=== PATIENT | female | born 1935 | race Caucasian/White ===

== ENCOUNTER → 2022-05-29 08:15 | Outpatient (BNVA) | payer MEDICARE, SELFPAY | PROVIDERS: PCP Internal Medicine Medical Oncology; Visit Provider Surgery | DX: C50.912 Malignant neoplasm of unspecified site of left female breast (principal) | CPT/HCPCS: 99202 ==

== ENCOUNTER 2022-06-09 06:45 | Day surgery (SDC) | payer MEDICARE, SELFPAY ==
[2022-06-03 11:59] VITALS: BP 123/61; PULSE 68; RESP 20; O2SAT 95; BMI 23.0
--- NOTE | 2022-06-03 12:10 | P.CONAN_ITS ---
Documented by User: Fouzia Santos NP 06/06/22 10:49 HPI - Anesthesia Eval Consult details Narrative: 86yo F for Left Breast Lumpectomy/Needle Loc, [place] Node Biopsy Severe aortic stenosis by echo (last 09/2020), DEYSI=0.8. Case reviewed with Dr Ospina. Need updated echo preop or Dr Diego needs documentation of urgency. [facility] at [facility] aware 06/02/22. 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 (Acute) Pulmonary hypertension (Acute) Left ventricular hypertrophy (Acute) Right bundle branch block (Acute) Aortic stenosis (Acute) Past Medical History Medical History (Updated 06/02/22 @ 09:48 by Tiffanie Granados RN) Aortic stenosis Chronic low back pain with sciatica Diverticulitis Fibrocystic disease of breast Hyperlipidemia Left ventricular hypertrophy Osteoarthritis Pulmonary hypertension Right bundle branch block Family History Family history of problems with anesthesia: No Surgical History Surgical History (Updated 06/03/22 @ 11:58 by Tiffanie Granados RN) H/O: hysterectomy History of hip replacement Hx of breast lump removal S/p bilateral carpal tunnel release History of Problems with Anesthesia: No Social History Social History Household Members Other:: Lives in sons house Are you a primary health care technician to a significant other at home: No Do you presently have visiting nurse or other home services: No Alcohol intake: never Patient Tobacco Use Status: Former Tobacco user Quit Date: Tobacco use type: Cigarette Second Hand Smoke Exposure: No Narrative Narrative: No recent illness No chest pain. Mild YANG. Reports I'm still active . No limitations on stairs. Multiple flights at home all day. Meds Allergies Allergy/AdvReac Type Severity Reaction Status Date / Time No Known Allergies Allergy Verified 05/29/22 08:29 Home Medications Medication Instructions Recorded Confirmed Last Taken Type anastrozole 1 mg tablet 1 mg PO DAILY 05/29/22 06/02/22 Unknown History simvastatin 40 mg tablet 40 mg PO QPM 05/29/22 06/02/22 Unknown History cholecalciferol (vitamin D3) 50 50 mcg PO DAILY 06/02/22 06/02/22 Unknown History mcg (2,000 unit) capsule (Vitamin D3) plhnqbyg-wmj-yqkyw ac 400 tab PO 06/02/22 Unknown History mcg-calcium carb 500 mg-vit K1 20 mcg tablet (Women's 50 Plus Multivitamin) Exam Exam Date and Time: June 03, 2022 1210 Height,Weight and Vital Signs: Height 5 ft 3 in Weight 58.967 kg Last Vital Signs Pulse 68 06/03/22 11:59 Resp 20 06/03/22 11:59 BP 123/61 06/03/22 11:59 Pulse Ox 95 06/03/22 11:59 O2 Del Method 06/03/22 11:59 Narrative Narrative: EKG 04/2022 (from cardiac clearance note, waveform not available per cardiology office) NSR with RBBB and Leftward axis Normal intervals and nonspecific repolarization changes ECHO 09/2020 1. LV size is normal 2. Borderline LVH 3. LV sys function is normal with EF 60-65% 4. Aortic valve moderately calcified 5. Mild aortic regurgitation 6. Severe aortic stenosis with peak/mean pressure gradient of 62mmHg/36mmHg. DEYSI = 0.8cm2 7. Mild thickening of posterior mitral valve leaflet 8. Moderate mitral annular calcification present 9. Mild mitral regurg Airway Mallampati Class: II TM Dist: >3cm Neck ROM: Full Denture: Upper and Lower Loose/Missing/Broken Teeth: Yes Heart: RRR + M Lungs: CTAB Assessment and Plan Assessment Anesthesia Assessment: Anesthesia Plan Discussed and PAT Visit Final Anesthetic Review Family History of Problems with Anesthesia: No History of Problems with Anesthesia: No Documented by User: Noe Aquino MD 06/09/22 17:49 [facility] Past Medical History Medical History (Updated 06/02/22 @ 09:48 by Tiffanie Granados RN) Aortic stenosis Chronic low back pain with sciatica Diverticulitis Fibrocystic disease of breast Hyperlipidemia Left ventricular hypertrophy Osteoarthritis Pulmonary hypertension Right bundle branch block Functional capacity: uses cane/walker Surgical History Surgical History (Updated 06/03/22 @ 11:58 by Tiffanie Granados RN) H/O: hysterectomy History of hip replacement Hx of breast lump removal S/p bilateral carpal tunnel release Social History Social History Household Members Other:: Lives in sons house Are you a primary health care technician to a significant other at home: No Do you presently have visiting nurse or other home services: No Alcohol intake: never Patient Tobacco Use Status: Former Tobacco user Quit Date: Tobacco use type: Cigarette Second Hand Smoke Exposure: No Meds Allergies Allergy/AdvReac Type Severity Reaction Status Date / Time No Known Allergies Allergy Verified 05/29/22 08:29 Home Medications Medication Instructions Recorded Confirmed Last Taken Type anastrozole 1 mg tablet 1 mg PO DAILY 05/29/22 06/02/22 Unknown History simvastatin 40 mg tablet 40 mg PO QPM 05/29/22 06/02/22 Unknown History cholecalciferol (vitamin D3) 50 50 mcg PO DAILY 06/02/22 06/02/22 Unknown History mcg (2,000 unit) capsule (Vitamin D3) pilmzfgx-qjt-smugz ac 400 tab PO 06/02/22 Unknown History mcg-calcium carb 500 mg-vit K1 20 mcg tablet (Women's 50 Plus Multivitamin) Assessment and Plan Final Anesthetic Review NPO: Yes ASA Class: IV Final Preanesthetic Review: Meds/Allgs Chart Reviewed, Consent Obtained/Reviewed and Anes Risks/Benef Reviewed Patient Risk: High Procedure Risk: Intermediate Anesthetic Plan Anesthetic Plan: MAC: Disposition: Standard PACU
--- NOTE | ~2022-06-09 | NM_ITS ---
PROCEDURE: NM LYMPH SCINTIGRAPHY CLINICAL INFORMATION: Left breast tumor. COMPARISON: None TECHNIQUE: Following explaining left breast [place] node procedure, benefits and risk, a written consent was obtained. Patient was placed supine on stretcher and left breast areola was cleaned and draped in usual sterile manner. 0.125 mCi of 99m technetium Lymphoseek was injected equally in 4 quadrants without immediate complaints. Imaging was obtained approximately 25 minutes later. FINDINGS: There are 4 areas of isotope activity in the 4 quadrants around the left breast areola. There are several at least 2 or 3 lymph node activity seen in the left axilla. No additional areas of abnormal activity seen in the chest. NM/NM sentinel node w imaging IMPRESSION: Successful left breast lymphoscintigraphy performed with at least 3 lymph nodes with isotope activity seen in the left axilla.
--- NOTE | ~2022-06-09 | MM_ITS ---
EXAMINATION: MM MAMMOGRAM GUIDED NEEDLE LOCALIZATION BREAST, LEFT MM NEEDLE LOCALIZATION SPECIMEN FROM THE LEFT BREAST CLINICAL INFORMATION: Age 86. Biopsy-proven invasive lobular carcinoma upper inner left breast, imaging and procedure performed at [facility]. COMPARISON: Outside breast imaging from [facility]: Mammography, 06/06/2020, 06/17/2021, 06/26/2021, 07/10/2021, 01/14/2022; left breast ultrasound the 06/26/2021, 07/10/2021, 01/14/2022 TECHNIQUE NEEDLE LOC: Proper informed consent is obtained from the patient after discussion of the procedure, potential risks and complications, and alternatives including declining the procedure today. Patient was given an opportunity for questions. The patient appeared to understand. The patient consented to the procedure and signed the consent form. GUIDANCE: Digital mammography. APPROACH: Medial Lateral. TARGET: Biopsy clip marker upper inner quadrant. ANESTHESIA: Carbonated lidocaine 1%: 6 mL. LOCALIZATION MARKER: [place] MammaLok. 7.5 cm length. The skin is prepped and local anesthesia administered. The needle is positioned and position assessed with mammography. The wire is hooked into position. [place] needle protector placed. The patient tolerated the procedure well and had no immediate complication. Following the procedure, 4% lidocaine ointment was administered to the left areola and covered with Tegaderm in anticipation of nuclear lymphoscintigraphy injection for sentinel lymph node mapping. Procedure results called to medical donation professional (Fouzia) for Dr. Diego following procedure. TECHNIQUE SPECIMEN RADIOGRAPH: Imaging of the excised specimen is performed using digital mammography in 1 view. FINDINGS SPECIMEN RADIOGRAPH: The specimen shows the distal needle and distal hookwire are delivered intact. The biopsy clip marker is identified in the specimen. Results were called to Dr. Onesimo Diego in the operating room at the time of imaging. MM/MM needle loc LT IMPRESSION: 1. Status post left breast needle localization with wire hooked into position. 2. Post operative specimen radiograph obtained.
[2022-06-09 07:02] LABS: Hematocrit 42.4 % (37.0-47.0); Hemoglobin 13.7 g/dl (12.0-16.0); Mean Corpuscular HGB Conc 32.3 g/dl (31.0-35.0); Mean Corpuscular Volume 95.9 fL (80.0-98.0); Mean Platelet Volume 11.3 fL (9.4-12.3); Platelet Count 201 X10*3/uL (160-400); Red Blood Count 4.42 X10*6/uL (4.20-5.50); Red Cell Distribution Width 13.6 % (11.0-16.0); White Blood Count 5.3 X10*3/uL (4.8-10.8)
[2022-06-09 07:06] VITALS: BP 110/60; PULSE 71; RESP 16; TEMP 36.1; O2SAT 96
--- NOTE | 2022-06-09 08:13 | PC.NURSE ---
off unit to needle loc
--- NOTE | 2022-06-09 08:53 | PC.NURSE ---
patient back from needle loc.
[2022-06-09 10:27] LABS: Anion Gap 16 (12-20); Blood Urea Nitrogen 15 mg/dL (9-16); Calcium 9.9 mg/dL (8.4-10.2); Carbon Dioxide 24 mmol/L (22-29); Chloride 105 mmol/L (96-108); Creatinine Clr Calc Pharmacy 46.8; Estimated Glomerular Filt Rate > 60; Glucose Fasting 108 mg/dL (60-99); Potassium 4.2 mmol/L (3.3-5.1); Sodium 141 mmol/L (135-145)
--- NOTE | 2022-06-09 10:27 | MHC.SHP ---
Pre-Procedural Eval Section A Date of Service: 06/09/22 The patient is an INPATIENT: No Changes since office visit: Yes Patient answered all questions; No Cold of Flu in the past 2 weeks, No New Medical Problems and No Changes in Medication The History & Physical has been completed within 30 days and I have reviewed it.: Yes Section B Chief Complaint: Malignant neoplasm of unspecified site of left fem Allergies: Allergies Allergy/AdvReac Type Severity Reaction Status Date / Time No Known Allergies Allergy Verified 05/29/22 08:29 Plan Diagnosis/Plan: Unchanged I have reviewed the history and physical and performed a pertinent physical examination on my patient. No changes have occurred unless specified.
[2022-06-09] MEDS: Lactated Ringers 1,000 ML 100 ML IVCONT (10:32)
--- NOTE | 2022-06-09 12:22 | W.PM.OPN ---
Operative Note Operative Note Date of Service: 06/09/22 Narrative: Preoperative diagnosis:Invasive lobular carcinoma left breast Postoperative diagnosis:same Procedure:[] Surgeon: Onesimo Diego MD Sheet Fed Printer: Bridget Soliz PA-C, EVETTE Powell Anesthesia:Local MAC Indications for procedure:86 year old female found to have a left breast invasive lobular ca, treated with neoadjuvant anastrozole for one year, presenting today for a left breast lumpectomy with needle localization, right axillary sentinel node biopsy. Patient has decided she does not want radiation therapy. Operative findings:Localizing needle and marking clip noted in the specimen. Unable to find sentinel node due to patient discomfort during the procedure. Specimen:1. LEft breast lumpectomy; 2. Axillary contents, no sentinel node found Estimated blood loss:10 mls Complications:none Procedure details: Patient was brought to the operating room and placed in a supine position. Patient received no anesthesia. A surgical time-out was called the consent confirmed. Patient's left breast and axilla were prepped with ChloraPrep and draped in a sterile fashion. Patient received preoperative antibiotics. Local anesthesia consisting of 1% lidocaine plain with 0.5% Sensorcaine with epinephrine was infiltrated around the localizing needle in the upper inner quadrant of the left breast. Incision was then made directly adjacent to the localizing needle in a transverse fashion. This was carried out through subcutaneous tissue. Superior inferior skin flaps were then created. A core tissue was then dissected using Metzenbaum scissors around the specimen. Lesion was marked with a short suture on the superior margin long suture on the lateral margin and looped suture on the posterior margin. Hemostasis was assured using free ties of 3-0 Polysorb. Wounds were irrigated with saline solution. Specimen was sent to pathology for further examination. Attention was then directed to the axilla in the gamma probe was used to identify area of increased activity. local anesthesia was infiltrated in this location. Incision was then made a transverse fashion in the lower axilla. This was carried out through subcutaneous tissue , past clavipectoral fascia into the axillary compartment. Using the gamma probe an area of increased activity was grasped with a Allis clamp and dissected free. When this was removed however no radio activity was noted within the specimen. An additional an area of increased activity was identified and grasped with the Allis clamp. Once again no radio activity was noted the specimen once this specimen was removed. Due to patient's persistent pain during this part of the procedure, no further specimen was removed and the axillary biopsy aborted. The 2 previously mentioned specimens were sent as additional axillary contents. Both incisions were irrigated with saline solution. Specimen x-ray and gross pathology confirmed an adequate breast biopsy. After assuring adequate hemostasis the deep breast tissue was reapproximated using interrupted 3-0 Polysorb sutures. Dermis was reapproximated using interrupted 3-0 Polysorb sutures. Skin was closed using a running subcuticular 4-0 Polysorb suture. In a similar fashion the clavipectoral fascia was closed using interrupted 3-0 Polysorb sutures. Dermis was closed using interrupted 3-0 Polysorb sutures. Skin was then closed using a running subcuticular 4-0 Polysorb suture. Steri-Strips, flat gauze and Tegaderm were then applied to both incisions. The patient tolerated the procedure reasonably well although did have some discomfort in the axilla. She was transported to the PACU in stable condition. Sponge, instrument, needle counts reported as correct.
[2022-06-09 12:40] VITALS: BP 124/64; PULSE 61; RESP 18; TEMP 36.8; O2SAT 97
[2022-06-09 12:41] VITALS: BP 110/68; PULSE 62; RESP 18; TEMP 36.8; O2SAT 97
--- NOTE | 2022-06-09 13:16 | PC.NURSE ---
Small bruise noted to right hand after IV removal, approx. size nickel. pressure dressing applied.
== END 2022-06-09 12:47 | disposition home or self-care (01) ==
PROVIDERS: Nurse Practitioner; PCP Internal Medicine Medical Oncology; Visit Provider Surgery
PROC: (CPT 19301; principal; 2022-06-09 10:50)
DX: C50.212 Malignant neoplasm of upper-inner quadrant of left female breast (principal); Z17.0 Estrogen receptor positive status [ER+]; M79.622 Pain in left upper arm; Z79.811 Long term (current) use of aromatase inhibitors; I35.0 Nonrheumatic aortic (valve) stenosis; I51.7 Cardiomegaly; I27.20 Pulmonary hypertension, unspecified; I45.10 Unspecified right bundle-branch block
CPT/HCPCS: 19301; 38525; 19281; 36415; 78195; 80048; 85027; 88307; 88329; 88341; 88342; A4648; A9520; J0131; J0690; J2795

== ENCOUNTER → 2022-06-17 09:05 | Outpatient (BNVA) | payer MEDICARE, SELFPAY | PROVIDERS: PCP Internal Medicine Medical Oncology; Visit Provider Surgery | DX: Z48.3 Aftercare following surgery for neoplasm (principal); C50.212 Malignant neoplasm of upper-inner quadrant of left female breast | CPT/HCPCS: 99212 ==

== ENCOUNTER → 2022-07-24 09:19 | Outpatient (BNVA) | payer MEDICARE, SELFPAY | PROVIDERS: PCP Internal Medicine Medical Oncology; Referring Provider Internal Medicine Medical Oncology; Visit Provider Surgery | DX: Z13.89 Encounter for screening for other disorder (principal) | CPT/HCPCS: 99212 ==

== ENCOUNTER → 2022-10-16 09:15 | Outpatient (BNVA) | payer MEDICARE, SELFPAY | PROVIDERS: PCP Internal Medicine Medical Oncology; Referring Provider Internal Medicine Medical Oncology; Visit Provider Surgery | DX: C50.912 Malignant neoplasm of unspecified site of left female breast (principal) | CPT/HCPCS: 99212 ==

== ENCOUNTER → 2023-01-22 09:20 | Outpatient (BNVA) | payer MEDICARE, SELFPAY | PROVIDERS: PCP Internal Medicine Medical Oncology; Visit Provider Surgery | DX: C50.912 Malignant neoplasm of unspecified site of left female breast (principal) | CPT/HCPCS: 99212 ==

== ENCOUNTER 2024-06-21 09:27 | Outpatient (AMB) | payer MEDICARE, SELFPAY ==
--- NOTE | 2024-06-21 09:34 | A.OFFVIS_ITS ---
Vital Signs 3 06/21/24 09:48 Height 5 ft 3 in Weight 118 lb 8 oz BMI 21.0 BP 136/65 Blood Pressure Location Lt brachial Position Sitting Pulse 73 Intake Visit Reasons: Bilateral breast masses 1.2cm (L) breast Intake Note: Patient is seen in office for bilateral breast masses. Pt c/o: states she had this lump for a long time and is the same size, no pain, is not concerns regarding the breast, pt states she is not taking any of her meds they give her the runs Chest xray:05/24/24 mm: zero Hospice Care Transitions Coordinator Required: No Photovoltaic Technician: Photovoltaic Technician Present Accompanied by: Self / Same As Patient Allergies No Known Allergies Allergy (Verified 06/21/24 09:47) HPI Comments Details: 88-year-old female patient returning following left breast lumpectomy and attempted left axillary sentinel node biopsy for invasive lobular carcinoma on 06/09/2022. She underwent a mammogram at [facility] which revealed an abnormal finding in the left breast at the 11 o'clock position 12 cm from the nipple. Subsequent radiologic biopsy and [facility] confirmed an invasive lobular carcinoma, ER/MS positive, HER2 Concepcion negative. She has a prior history of aortic stenosis, pulmonary hypertension, and right bundle-branch block. She denies a prior history of breast problems but does note a previous history of nipple inversion in the left breast which is been present for many years. She denies any previous breast surgery on either side. Her family history is negative for breast cancer. She denies any palpable mass on either side. She was treated with anastrozole as neoadjuvant treatment for the previous year by Dr. Rodriguez, and tolerated this treatment well.. She is and did not breast feed her child. A left breast lumpectomy and attempted left axillary sentinel node biopsy was performed under local anesthesia due to her cardiac history. She tolerated the breast surgery but was unable to tolerate the axillary node biopsy. She was recently evaluated in the emergency department for a breast lump near her previous incision. She also reports a palpable lump in the right breast at the upper inner quadrant. She feels these have been present for many years and have not changed at all. She recently stopped all her medications including anastrozole because of the side effects and is not really interested in any further surgery or biopsies. PENDING SALE TO [facility] Medical History Pulmonary hypertension Left ventricular hypertrophy Right bundle branch block Aortic stenosis Diverticulitis Chronic low back pain with sciatica Fibrocystic disease of breast Osteoarthritis Hyperlipidemia Surgical History Status post left breast lumpectomy (06/09/22) Hx of breast lump removal History of hip replacement S/p bilateral carpal tunnel release H/O: hysterectomy Social History Household Members Other:: Lives in sons house Are you a primary acute care occupational therapist to a significant other at home: No Do you presently have visiting nurse or other home services: No Alcohol intake: never Patient Tobacco Use Status: Former Tobacco user Tobacco use type: Cigarette Second Hand Smoke Exposure: No Review of Systems Const All systems reviewed & are unremarkable except as noted in HPI and below Denies chills, Denies fever(s), Denies headache(s), Denies poor appetite and Denies weakness ENT Denies headache(s) Card Denies chest pain, Denies irregular heart rhythm, Denies palpitations and Denies dyspnea Resp Denies cough, Denies excessive phlegm production and Denies dyspnea GI Denies abdominal pain, Denies bloating, Denies change in bowel habits, Denies constipation, Denies heartburn, Denies diarrhea, Denies nausea and Denies vomiting Denies urinary frequency and Denies nipple discharge Musc Denies back pain, Denies muscle weakness and Denies numbness Skin/Breast Denies breast swelling, Denies breast skin changes, Denies breast pain, Denies changing lesions, Denies nipple discharge and Denies unusual bruising Neuro Denies headache(s), Denies numbness, Denies paresthesias and Denies weakness Psych Denies anxiety and Denies depression Endo Denies palpitations Mayito/Lymph Denies lymphadenopathy Physical Exam Const General: no acute distress Nutritional Appearance: well nourished Orientation/consciousness: patient oriented x3 Limitations: no limitations Chest Other: Left breast: Well-healed incision with minimal residual firmness in the upper inner quadrant and axilla, sightly last from previous examination. No definite mass palpable, no tenderness to palpation. No enlarged lymph nodes appreciated; well-healed incision in the axilla and upper inner quadrant. Right breast: No skin change, nipple discharge, palpable mass, or enlarged lymph nodes. Small possible epidermal inclusion cyst noted in the upper inner quadrant with central punctum. No overlying skin change. Chest/axillae images: 2 1. 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 She was treated with neoadjuvant antiestrogen therapy (anastrozole) for one year. She now returns following left breast lumpectomy with needle localization, left attempted axillary sentinel node biopsy performed under local anesthesia with minimal sedation. The axillary biopsy needed to be aborted due to pain associated with the surgery. She recently stopped all her medications including anastrozole due to GI side effects. She was evaluated in the emergency department for apparent breast change although she now reports everything is fine. Examination does not really identify any suspicious changes and she is not interested in any further biopsies or surgery given her age and overall medical condition. No surgical intervention has been recommended and I recommend follow up as needed. 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
[2024-06-21 09:48] VITALS: BP 136/65; PULSE 73; BMI 21.0
== END 2024-06-21 09:57 | disposition home or self-care (01) ==
PROVIDERS: PCP Internal Medicine Medical Oncology; Visit Provider Surgery
DX: C50.912 Malignant neoplasm of unspecified site of left female breast (principal)
CPT/HCPCS: 99213

== ENCOUNTER → 2024-06-21 09:27 | Outpatient (BNVA) | payer MEDICARE, SELFPAY | PROVIDERS: PCP Internal Medicine Medical Oncology; Visit Provider Surgery | DX: C50.212 Malignant neoplasm of upper-inner quadrant of left female breast (principal); Z17.0 Estrogen receptor positive status [ER+]; Z17.21 Progesterone receptor positive status; Z17.32 Human epidermal growth factor receptor 2 negative status; Z79.811 Long term (current) use of aromatase inhibitors | CPT/HCPCS: 99212 ==